=== PATIENT | female | born 1980 ===

== ENCOUNTER 2017-11-20 12:40 | Emergency (ER) | payer OTHER ==
[2017-11-20 12:57] VITALS: TEMP 98.6; O2SAT 98
[2017-11-20 13:42] LABS: SQUAMOUS EPITHIAL 1 /hpf (0-5); URINE BACTERIA OCC (<OCC); URINE BILIRUBIN NEGATIVE (NEGATIVE); URINE BLOOD NEGATIVE (NEGATIVE); URINE CLARITY Clear (Clear); URINE COLOR Straw (YELLOW); URINE GLUCOSE (UA) NORMAL (Normal); URINE LEUKOCYTE ESTERASE NEG Leu/uL (Negative); URINE PROTEIN NEGATIVE (NEGATIVE); URINE UROBILINOGEN NORMAL mg/dL (0.2-1.0)
--- NOTE | 2017-11-20 13:48 | C.PDOC ---
History Of Present Illness 37 y/o female lmp 09/22, comes to ed for several weeks of lower back pain and yellow watery vaginal discharge that started today. pt was seen at [facility] 2 times, on 11/04 and 11/08, with bch of 1000 on , then [id number] on . pelvic us 11/08 showed small gestation sac. no urinary symptoms. no abdominal pain. Pt has mild nausea. no vomiting. denies hx gc or chlamydia. Time Seen by Provider: 11/20/17 13:09 Chief Complaint (Nursing): Female Genitourinary History/Exam Limitations: no limitations Onset/Duration Of Symptoms: Days (1) Current Symptoms Are (Timing): Still Present Quality Of Discomfort: Unable To Describe Severity: Mild Previous Symptoms: Back Pain Associated Symptoms: denies: Incontinence, New Weakness, New Numbness Past Medical History Reviewed: Historical Data, Nursing Documentation, Vital Signs Vital Signs: Last Vital Signs Temp 98.6 F 11/20/17 12:52 Pulse 75 11/20/17 12:52 Resp 19 11/20/17 12:52 BP 122/76 11/20/17 12:52 Pulse Ox 98 11/20/17 12:52 - Medical History PMH: No Chronic Diseases, TIA Family History: States: Unknown Family Hx - Social History Hx Tobacco Use: No Hx Alcohol Use: No Hx Substance Use: No - Immunization History Hx Tetanus Toxoid Vaccination: No Hx Influenza Vaccination: No Hx Pneumococcal Vaccination: No Review Of Systems Constitutional: Negative for: Fever, Chills Gastrointestinal: Positive for: Nausea. Negative for: Vomiting, Abdominal Pain Genitourinary: Positive for: Vaginal Discharge. Negative for: Dysuria, Frequency, Vaginal Bleeding Musculoskeletal: Positive for: Back Pain Neurological: Negative for: Weakness, Numbness Physical Exam - Physical Exam Appears: Non-toxic, No Acute Distress Skin: Warm, Dry Head: Atraumatic, Normacephalic Eye(s): bilateral: Normal Inspection Neck: Supple Cardiovascular: Rhythm Regular, No Murmur Gastrointestinal/Abdominal: Bowel Sounds, Soft, No Tenderness Back: No CVA Tenderness Pelvic: Normal External Exam, Normal Bimanual Exam, No Vaginal Bleeding, Vaginal Discharge (beige mucousy discharge noted on cervix. ), No Cervical Motion Tenderness, No Cervix Open, No Tender Uterus Neurological/Psych: Oriented x3, Normal Speech, Normal Cognition ED Course And Treatment - Laboratory Results Result Diagrams: 11/20/17 14:14 11/20/17 14:14 O2 Sat by Pulse Oximetry: 98 (RA) Pulse Ox Interpretation: Normal - CT Scan/US OB US Other Rad Studies (CT/US): Read By Radiologist CT/US Interpretation: Findings: Uterus measures approximately 9.9 x 5.2 x 6.2 cm. Anteverted. Cervix length measures approximately 3.3 cm. There is a single intrauterine fetus present. The gestational sac measures 1.2 cm and is compatible with a gestational age of 5 weeks 2 days. No evidence of yolk sac or pole. The right ovary measures 3.0 x 2.3 x 3.0 cm. The left ovary measures 3.2 x 2.2 x 2.6 cm. Blood flow was demonstrated to both ovaries. A 1.3 cm right ovarian complex cyst, likely corpus luteum. Impression: Intrauterine gestational sac consistent with gestational age 5 weeks 2 days. No evidence of yolk sac or pole. Recommend correlation with quantitative beta HCG and follow-up as indicated. 1.3 cm probable right corpus luteal cyst. Medical Decision Making Medical Decision Making: pt with vag discharge, , prior us with only gestational sac seen. will repeat labs and us 1738 pt with gestational sac on us, no pole or yolk sac, no fhr. beta hcg [id number] today. discussed with Dr Webster from ob. recommends pt be seen on fri for repeat hcg and us, given discrepancy between us findings and bhcg. pt understands. Disposition Counseled Patient/Family Regarding: Studies Performed, Diagnosis, Need For Followup - Disposition Disposition: HOME/ ROUTINE Disposition Time: 17:51 Condition: STABLE Instructions: Threatened Miscarriage Forms: Gen Discharge Inst Iranian, PERORA (Iranian), Work Excuse - Clinical Impression Clinical Impression: Threatened
[2017-11-20 14:22] LABS: BASO % 0.5 % (0.0-2.0); EOS # 0.1 K/uL (0.0-0.7); EOS % 1.4 % (0.0-4.0); HEMOGLOBIN 12.4 g/dL (11.0-16.0); LYMPH # 1.5 K/uL (1.0-4.3); LYMPH % 32.2 % (20.0-40.0); MEAN CELL VOLUME 89.2 fL (81.0-99.0); MEAN CORPUSCULAR HEMOGLOBIN 30.3 pg (27.0-31.0); MEAN PLATELET VOLUME 8.7 fL (7.2-11.7); MONO # 0.5 K/uL (0.0-0.8); MONO % 11.4 % (0.0-10.0); NEUT # 2.6 K/uL (1.8-7.0); NEUT % 54.5 % (50.0-75.0); RBC 4.07 Mil/uL (3.80-5.20); RED CELL DISTRIBUTION WIDTH 13.6 % (11.5-14.5); WHITE BLOOD COUNT 4.7 K/uL (4.8-10.8)
[2017-11-20 14:30] LABS: ALB/GLOB RATIO 1.5 (1.0-2.1); ALBUMIN 4.5 g/dL (3.5-5.0); BLOOD UREA NITROGEN 11 mg/dL (7-17); CALCIUM 9.7 mg/dl (8.6-10.4); GFR NON-AFRICAN AMERICAN > 60
[2017-11-20 14:33] LABS: ALT/SGPT 18 U/L (9-52); AST/SGOT 29 U/L (14-36)
--- NOTE | 2017-11-20 16:16 | US ---
Date of service: 11/20/17 Indication: , yellow watery discharge Comparison: None available Technique: Transvaginal pelvic ultrasound. Findings: Uterus measures approximately 9.9 x 5.2 x 6.2 cm. Anteverted. Cervix length measures approximately 3.3 cm. There is a single intrauterine fetus present. The gestational sac measures 1.2 cm and is compatible with a gestational age of 5 weeks 2 days. No evidence of yolk sac or pole. The right ovary measures 3.0 x 2.3 x 3.0 cm. The left ovary measures 3.2 x 2.2 x 2.6 cm. Blood flow was demonstrated to both ovaries. A 1.3 cm right ovarian complex cyst, likely corpus luteum. Impression: Intrauterine gestational sac consistent with gestational age 5 weeks 2 days. No evidence of yolk sac or pole. Recommend correlation with quantitative beta HCG and follow-up as indicated. 1.3 cm probable right corpus luteal cyst.
[2017-11-20 18:06] VITALS: BP 116/69; PULSE 78; RESP 16
== END 2017-11-20 18:05 | disposition home or self-care (01) ==
LOC: C.ER 12:40
DX: O20.0 Threatened abortion (principal); Z3A.01 Less than 8 weeks gestation of pregnancy